=== PATIENT | male | born 1970 | race Caucasian/White ===

== ENCOUNTER 2021-09-21 07:38 | Outpatient (CLI) | payer OTHER ==
--- NOTE | 2021-09-21 08:48 | CARDIAC PROCEDURE NOTE ---
Stress Test Report Service Date: 09/21/21 Service Time: 08:00 Ordering Provider: Celestine Seaman Indication for Test: Assess chest discomfort. Significant Medical History: Julius is referred for an exercise treadmill test today to assess chest discomfort that occurred following receipt of a COVID booster vaccine a few weeks ago. He has some risk factors as elaborated below, but has generally been healthy and active. He reports walking on a regular basis for exercise as well as going to the gym with a cardio focus a couple of times a week. He has had no decrease in his ability to pursue these activities, in spite of the episode a few weeks ago. He developed post vaccine malaise, which after a couple of days was accompanied by the sensation of a racing heart and substernal chest discomfort. He self- referred to the Emergency Department at [facility] where he was found to have marked elevation of blood pressure and was given 3 sublingual nitroglycerin tablets with (per his understanding) reduction in heart rate and blood pressure. He does not recall whether nitroglycerin affected his chest discomfort. EKG was non-diagnostic and troponins negative. He reports that the discomfort gradually got better over a few days and has not returned. As mentioned, he remains active without limitation. 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 Cardiac Risk Factors: Positive for hypertension treated for ~12 years with good control with self- monitoring, recent diagnosis of type 2 diabetes and family history of HTN and "heart disease" (exact type unknown); no reported history of hyperlipidemia or significant tobacco smoking (one year as a teenager then quit). Type of Stress Test: Exercise Treadmill Test (ETT) Procedure: -Exercise Treadmill Test- After signing informed consent, the patient performed treadmill exercise using a Phoenix protocol. The patient exercised for 11 minutes 40 seconds and achieved a peak heart rate of 154 (91 percent predicted maximum heart rate for age), and an estimated workload of 13.5 METS. The test was terminated due to leg fatigue/shortness of breath following at tainment of target heart rate. Resting heart rate: 62 Peak heart rate: 154 Normal response to exercise. Resting BP: 135/88 Peak BP: 185/75 Normal BP response to exercise. Rhythm during exercise: Sinus rhythm throughout without ectopy. Symptoms: NO chest discomfort reported. EKG at rest showed normal sinus rhythm with borderline nonspecific intraventricular conduction delay. EKG at peak stress showed J-point depression with upsloping ST segments, NOT meeting diagnostic criteria for ischemia. In Recovery BP returned to baseline level, heart rate declined more slowly, remaining elevated at 5:00 (101 bpm), possibly consistent with early diabetic cardiac autonomic dysfunction. No imaging was ordered with this stress test. Wesley Olvera MD, was present throughout this treadmill stress study and supervised it in its entirety. Summary: 1) Exercise tolerance was slightly above average for age and sex, as evidenced by LINDSEY of -12%. 2) Normal resting EKG, though with borderline intraventricular conduction delay. 3) Adequate level of exercise was achieved on this treadmill stress test. 4) Normal BP response to exercise. 5) No ischemic changes by EKG criteria were seen at peak stress. Note that computer-based analysis of summary data suggests ST depression in the inferior leads, but this appears artifactual based on poor alignment of QRS complexes, with visual 12-lead inspection not convincing for ischemic ST abnormality. 6) No imaging was ordered with this test. CONCLUSIONS: 1) Low risk Phoenix ETT, with no report of chest discomfort and no clear EKG evidence of inducible ischemia. 2) Patient encouraged to continue aerobic workouts, with goal of at least 150 minutes of vigorous walking per week. 3) Although lipid panel values are not accessible, recent diabetes diagnosis should trigger initiation of a statin for primary ASCVD protection, assuming LDL cholesterol is between 70 and 190 mg/dL.
== END 2021-09-21 07:39 | disposition home or self-care (01) ==
LOC: DI 07:38
PROVIDERS: ATTEND Family Medicine
DX: R07.9 Chest pain, unspecified (principal); E11.9 Type 2 diabetes mellitus without complications
CPT/HCPCS: 93017